=== PATIENT | female | born 1985 | race Caucasian/White ===

== ENCOUNTER 2021-09-23 12:59 | Emergency (ER) | payer MEDICAID ==
[~2021-09-23] VITALS: Ht 162.6 cm; Wt 73.0 kg
[2021-09-23] MEDS ORDERED: MORPHINE SULFATE 4 MG/ML CPJ (NOT FOR IM USE) IV ONE (14:15)
[2021-09-23] MEDS ORDERED: HYDR-4001 MT (16:23)
[2021-09-23 18:00] VITALS: BP 103/60
== END 2021-09-23 18:20 | disposition home or self-care (01) ==
LOC: ER 12:59
DX: S82.032A Displaced transverse fracture of left patella, initial encounter for closed fracture (principal); W18.30XA Fall on same level, unspecified, initial encounter; Y93.89 Activity, other specified; Y92.89 Other specified places as the place of occurrence of the external cause; Y99.8 Other external cause status
CPT/HCPCS: 73552; 73560; 73590; 96374; 99284; J2270; L1830